=== PATIENT | female | born 1990 | race American Indian/Alaskan Native ===

== ENCOUNTER 2022-07-18 10:27 | Emergency (ER) | payer SELFPAY ==
[2022-07-18] MEDS ORDERED: IBUPROFEN 800 MG TAB PO ONE (12:25)
[2022-07-18] MEDS ORDERED: HYDROcodone/ACETAMINOPHEN 5-325 MG TAB PO ONE (12:25)
[2022-07-18 13:14] VITALS: BP 131/74
--- NOTE | 2022-07-18 13:34 | Emergency Department Report ---
ED Lac[facility] Chief Complaint: Skin/Abscess/Foreign Body Stated Complaint: RT FINGER INJURY Time Seen by Provider: 07/18/22 12:23 Location: Upper Extremity Severity: mild Tetanus Status: Up to Date Laceration Symptoms: Yes Pain, No Foreign Body Sensation, No Numbness, No Weakness ED Review of Systems ROS: Stated complaint: RT FINGER INJURY Other details as noted in HPI Constitutional: denies: chills, fever ENT: denies: ear pain, throat pain Respiratory: denies: cough, orthopnea Cardiovascular: denies: chest pain, palpitations Endocrine: denies: intolerance to cold, intolerance to heat Gastrointestinal: denies: nausea, vomiting Genitourinary: denies: urgency Musculoskeletal: denies: as per HPI Skin: lesions. denies: rash Neurological: denies: headache, weakness ED Past Medical Hx - Past Medical History Previous Medical History?: No - Surgical History Past Surgical History?: No - Social History Smoking Status: Never Smoker - Medications Home Medications: Home Medications Medication Instructions Recorded Confirmed Last Taken Type Ibuprofen [Motrin 800 MG tab] 800 mg PO Q8HR PRN #30 tablet 07/18/22 Unknown Rx Sulfamethoxazole/Trimethoprim 1 each PO BID #14 07/18/22 Unknown Rx [Bactrim DS TAB] traMADoL [Ultram 50 MG tab] 50 mg PO Q4HR PRN #12 tablet 07/18/22 Unknown Rx Laceration Physical Exam - Exam General: Vital signs noted. No distress. Alert and acting appropriately. Lungs are clear bilaterally. Patient has swelling and tenderness right third finger surrounding the nailbed. No abscess, no fluctuance, no induration. Consistent with paronychia. She has an artificial nail as well Wound Length (cm): 0 Laceration Location: Upper Extremity Laceration Exam: Yes Normal Distal CMS, No Foreign Body, No Tendon Injury ED Course Vital Signs 07/18/22 07/18/22 07/18/22 12:22 13:08 13:13 Temperature 97.5 F L Pulse Rate 55 L 84 78 Respiratory 20 18 18 Rate Blood Pressure 141/78 Blood Pressure 140/94 131/74 [Right] O2 Sat by Pulse 100 99 97 Oximetry ED Medical Decision Making - Medical Decision Making 31-year-old female presenting with pain at the tip of her right middle finger which has been going on for the past 2 to 3 days after she got a manicure. There is swelling there is tenderness to the area, there is warmth without fluctuance, consistent with paronychia which we will treat for. No indication for an abscess drainage at this time. Discharge home with antibiotics, warm compress Critical care attestation.: If time is entered above; I have spent that time in minutes in the direct care of this critically ill patient, excluding procedure time. ED Disposition Clinical Impression: Paronychia, Paronychia of right middle finger Disposition: HOME / SELF CARE / HOMELESS Is pt being admited?: No Does the pt Need Aspirin: No Condition: Stable Instructions: Paronychia, [id number] Prescriptions: Sulfamethoxazole/Trimethoprim [Bactrim DS TAB] 1 each PO BID #14 Ibuprofen [Motrin 800 MG tab] 800 mg PO Q8HR PRN #30 tablet PRN Reason: Pain , Severe (7-10) traMADoL [Ultram 50 MG tab] 50 mg PO Q4HR PRN #12 tablet PRN Reason: Pain Referrals: ALLEN CLARKE MD [Staff Physician] - 3-5 Days Forms: Work/School Release Form(ED)
== END 2022-07-18 13:14 | disposition home or self-care (01) ==
LOC: ED 10:27
DX: L03.011 Cellulitis of right finger (principal); Z79.899 Other long term (current) drug therapy
CPT/HCPCS: 99282

== ENCOUNTER 2022-07-23 12:39 | Emergency (ER) | payer SELFPAY ==
[2022-07-23 13:26] VITALS: BP 117/72
--- NOTE | 2022-07-23 14:02 | Emergency Department Report ---
Abscess Boil HPI - HPI Chief Complaint: Skin/Abscess/Foreign Body Stated Complaint: INFECTION IN FINGER Time Seen by Provider: 07/23/22 13:35 Duration: 6 Days Location: Upper Extremity Severity: Mild History: Yes Pain, No Fever, No Purulent Drainage, No Numbness, No Foreign Body, No Previous History, No Insect Bite HPI: This is a 31-year-old female nontoxic, well nourished in appearance, no acute signs of distress presents to the ED with c/o of redness, pain with swelling to right middle finger x 1 week. Patient denies any pus or drainage. Patient denies any fever, chills, nausea, vomiting, chest pain, shortness of breath, headache or stiff neck. Patient denies any allergies or significant past medical history. Home Medications: Previous Rx's Medication Instructions Recorded Last Taken Type Ibuprofen [Motrin 800 MG tab] 800 mg PO Q8HR PRN #30 tablet 07/18/22 Unknown Rx Sulfamethoxazole/Trimethoprim 1 each PO BID #14 07/18/22 Unknown Rx [Bactrim DS TAB] traMADoL [Ultram 50 MG tab] 50 mg PO Q4HR PRN #12 tablet 07/18/22 Unknown Rx Sulfamethoxazole/Trimethoprim 1 each PO BID #14 tab 07/23/22 Unknown Rx [Bactrim DS TAB] Allergies/Adverse Reactions: Allergies Allergy/AdvReac Type Severity Reaction Status Date / Time No Known Allergies Allergy Unverified 07/18/22 12:22 ED Review of Systems ROS: Stated complaint: INFECTION IN FINGER Other details as noted in HPI Comment: All other systems reviewed and negative Constitutional: denies: chills, fever Eyes: denies: eye pain, eye discharge, vision change ENT: denies: ear pain, throat pain Respiratory: denies: cough, shortness of breath, wheezing Cardiovascular: denies: chest pain, palpitations Endocrine: no symptoms reported Gastrointestinal: denies: abdominal pain, nausea, diarrhea Genitourinary: denies: urgency, dysuria, discharge Musculoskeletal: denies: back pain, joint swelling, arthralgia Skin: denies: rash, lesions Neurological: denies: headache, weakness, paresthesias Psychiatric: denies: anxiety, depression Hematological/Lymphatic: denies: easy bleeding, easy bruising ED Past Medical Hx - Social History Smoking Status: Never Smoker - Medications Home Medications: Home Medications Medication Instructions Recorded Confirmed Last Taken Type Ibuprofen [Motrin 800 MG tab] 800 mg PO Q8HR PRN #30 tablet 07/18/22 Unknown Rx Sulfamethoxazole/Trimethoprim 1 each PO BID #14 07/18/22 Unknown Rx [Bactrim DS TAB] traMADoL [Ultram 50 MG tab] 50 mg PO Q4HR PRN #12 tablet 07/18/22 Unknown Rx Sulfamethoxazole/Trimethoprim 1 each PO BID #14 tab 07/23/22 Unknown Rx [Bactrim DS TAB] ED Abscess Boil Physical Exam - Exam General: Vital signs noted. No distress. Alert and acting appropriately. Size: 2 cm Exam: Yes Tenderness, Yes Fluctuance, Yes Normal Neurologic Exam, Yes Normal Circulation, No Surrounding Cellulites/Erythema, No Lymphangitis, No Crepitation, No Heart Murmur I & D Note - I & D Note I & D Note: Under sterile field, I used Betadine to cleanse the area. I then used an 11 blade and inserted between cuticle and nail bed. Some purulent drainage has been noted. I then used sterile 0.9% normal saline flush to flush the wound with total volume of 40 mL used. A sterile 4 x 4 with tape has been applied as dressing. Bleeding is under control. Patient tolerated the procedure well with no signs of distress noted. ED Course Vital Signs 07/23/22 13:21 Temperature 98.9 F Pulse Rate 68 Respiratory 14 Rate Blood Pressure 117/72 [Right] O2 Sat by Pulse 100 Oximetry - Reevaluation(s) Reevaluation #1: 07/23/22 14:04 Patient is speaking in full sentences with no signs of distress noted. Critical care attestation.: If time is entered above; I have spent that time in minutes in the direct care of this critically ill patient, excluding procedure time. ED Medical Decision Making - Medical Decision Making This is a 31-year-old female that presents with paronychia. Patient is stable and was examined by me. This is incision and drainage and has been performed and patient tolerated well. A sterile dressing has been applied. Patient was educated on proper wound care. Patient is discharged with Bactrim. Patient was instructed to refer to Follow-up with a primary care doctor in 3-5 days or if symptoms worsen and continue return to emergency room as soon as possible. At time of discharge, the patient does not seem toxic or ill in appearance. No acute signs of distress noted. Patient agrees to discharge treatment plan of care. No further questions noted by the patient. ED Disposition Clinical Impression: Paronychia of right middle finger, Encounter for incision and drainage procedure Disposition: 01 HOME / SELF CARE / HOMELESS Is pt being admited?: No Does the pt Need Aspirin: No Condition: Stable Additional Instructions: Follow-up with a primary care doctor in 3-5 days or if symptoms worsen and continue return to emergency room as soon as possible. Prescriptions: Sulfamethoxazole/Trimethoprim [Bactrim DS TAB] 1 each PO BID #14 tab Referrals: PRIMARY [facility] [Referring] - 3-5 Days ALLEN CLARKE MD [Staff Physician] - 3-5 Days Time of Disposition: 14:05
== END 2022-07-23 20:00 | disposition home or self-care (01) ==
LOC: ED 12:39
DX: L03.011 Cellulitis of right finger (principal)
CPT/HCPCS: 99282